=== PATIENT | female | born 1975 | race Caucasian/White ===

== ENCOUNTER 2018-04-17 08:13 | Day surgery (SDC) | payer BC, SELFPAY ==
[2018-03-26 16:51] VITALS: BMI 32.1
[2018-04-17] VITALS (10 sets, daily range): BP systolic 106–123; BP diastolic 59–76; PULSE 66–88; RESP 12–20; TEMP 36.1–37.2; O2SAT 95–100; BMI 35.5
--- NOTE | 2018-04-17 08:48 | SUR.OPER ---
Supine on padded OR bed, head on pillow, safety belt at thigh, left arm padded and tucked at side. Right arm secured on padded arm oard <90 degrees abduction. Legs uncrossed. Padded footboard in place. Tape over blanket to secure lower legs.
[2018-04-17] MEDS: LACTATED RINGERS 1,000 ML 42 ML IV (08:56)
--- NOTE | 2018-04-17 09:21 | PM.HP.1 ---
History of Present Illness Date Patient Seen: 04/17/18 Time Patient Seen: 09:21 Chief complaint: [id number] REPAIR HERNIA POSSIBLE USE OF MESH Narrative: The patient is woman brought in for repair of a hernia that is above her umbilicus and slightly to the left. It is symptomatic and causes bloating localize pain. At 1 point had gotten quite large and hard but that has gone away. Patient History Medical History Ventral hernia (Acute) Bipolar disorder (Chronic) History of alcohol abuse (Chronic) OCD (obsessive compulsive disorder) (Chronic) Obesity (Chronic) Surgical History Status post knee surgery Family & Social History Family History: Reviewed 04/17/18 by Mian Jo MD Social History: household members significant other Tobacco & Substance use: Smoking Status Never smoker alcohol intake current Substance Use Type does not use Meds Home Medications Medication Instructions Recorded Confirmed Type hydrocodone-acetaminophen 0 PO SEE INSTRUCTIONS PRN #35 tab 05/23/16 Rx bupropion HCl [Wellbutrin SR] 150 mg PO BID 04/17/18 04/17/18 History topiramate [Topamax] 50 mg PO DAILY 04/17/18 04/17/18 History Allergies Allergy/AdvReac Type Severity Reaction Status Date / Time No Known Drug Allergies Allergy Verified 04/17/18 08:38 Review of Systems Review of Systems All systems reviewed & are unremarkable except as noted in HPI and below Exam Vital Signs (past 8 hours): Vital Signs - 8 hr 04/17/18 08:41 Temperature 99.0 F Pulse Rate 81 Respiratory Rate 15 Blood Pressure 123/75 H Pulse Oximetry 95 Pulse Oximetry 95 Oxygen Delivery Method Room Air Narrative Exam Narrative: Out rales rhonchi. Heart regular rate rhythm without murmur gallop. Abdomen is mildly protuberant soft nontender. Difficult to appreciate this small fascial defect above and to the left of the umbilicus. It is been marked. Assessment & Plan (1) Ventral hernia without obstruction or gangrene: Problem details: Plan repair. I have discussed the use of mesh which I probably will not use in this case. Risks of bleeding infection recurrence discussed. She appears to understand and wishes to proceed. Appreciates restrictions postop. Current visit: Yes Status: Acute
--- NOTE | 2018-04-17 09:25 | P.HP_ITS ---
History of Present Illness Date Patient Seen: 04/17/18 Time Patient Seen: 09:21 Chief complaint: [id number] REPAIR HERNIA POSSIBLE USE OF MESH Narrative: The patient is woman brought in for repair of a hernia that is above her umbilicus and slightly to the left. It is symptomatic and causes bloating localize pain. At 1 point had gotten quite large and hard but that has gone away. Patient History Medical History Ventral hernia (Acute) Bipolar disorder (Chronic) History of alcohol abuse (Chronic) OCD (obsessive compulsive disorder) (Chronic) Obesity (Chronic) Surgical History Status post knee surgery Family & Social History Family History: Reviewed 04/17/18 by Mian Jo MD Social History: household members significant other Tobacco & Substance use: Smoking Status Never smoker alcohol intake current Substance Use Type does not use Meds Home Medications Medication Instructions Recorded Confirmed Type hydrocodone-acetaminophen 0 PO SEE INSTRUCTIONS PRN #35 tab 05/23/16 Rx bupropion HCl [Wellbutrin SR] 150 mg PO BID 04/17/18 04/17/18 History topiramate [Topamax] 50 mg PO DAILY 04/17/18 04/17/18 History Allergies Allergy/AdvReac Type Severity Reaction Status Date / Time No Known Drug Allergies Allergy Verified 04/17/18 08:38 Review of Systems Review of Systems All systems reviewed & are unremarkable except as noted in HPI and below Exam Vital Signs (past 8 hours): Vital Signs - 8 hr 3 04/17/18 08:41 Temperature 99.0 F Pulse Rate 81 Respiratory Rate 15 Blood Pressure 123/75 H Pulse Oximetry 95 Pulse Oximetry 95 Oxygen Delivery Method Room Air Narrative Exam Narrative: Out rales rhonchi. Heart regular rate rhythm without murmur gallop. Abdomen is mildly protuberant soft nontender. Difficult to appreciate this small fascial defect above and to the left of the umbilicus. It is been marked. Assessment & Plan (1) Ventral hernia without obstruction or gangrene: Problem details: Plan repair. I have discussed the use of mesh which I probably will not use in this case. Risks of bleeding infection recurrence discussed. She appears to understand and wishes to proceed. Appreciates restrictions postop. Current visit: Yes Status: Acute
--- NOTE | 2018-04-17 09:25 | PM.PREOP ---
Pre-operative Note Interval Note Pre-op Check: History & Physical exam performed today H&P completed within 30 days and has changed as indicated here:: No change
[2018-04-17] MEDS: CEFAZOLIN 2 GM/100 ML FROZ.PIGGY IV (09:45)
[2018-04-17] MEDS: BUPIVACAINE 0.5% (PF) 30 ML VIAL INJ (10:44)
[2018-04-17] MEDS: LORazepam 2 MG/ML SYRINGE 0.5 MG IV ×2 (10:55→11:07)
[2018-04-17] MEDS: fentaNYL 100 MCG/2 ML INJ 50 MCG IV ×2 (10:56→11:02)
--- NOTE | 2018-04-17 11:08 | P.OP_ITS ---
Operative Date/Time/Diagnoses - Date of procedure: 04/17/18 Time of procedure: 11:00 Pre-op diagnosis: Reducible ventral hernia Post-op diagnosis: other (Incarcerated ventral hernia and a small umbilical hernia reducible without obstruction or gangrene) Procedure & Clinicians Procedure: Repair of 2-3 defects 1 at the umbilicus in one view at above the above umbilicus(ventral) with underlay of mesh. Same procedure as scheduled: No Indications: Patient was found to have an additional hernia adjacent to the 1st which was repaired Click Yes if Unassisted: Yes Anesthesia Type: General Operative Notes Findings: Two small defects 1 at the umbilicus and which was reducible and 1 with incarcerated fat above and to the left. Closure Type: primary Specimen(s): none sent Implants & Drains: Mesh circular 1.7 in Estimated Blood Loss (mL): 5 Blood products transfused: none Procedure in detail: The patient was placed supine on the operating room table and underwent general LMA anesthesia. She was prepped and draped in the usual fashion. Local anesthetic was infiltrated. The hernia was located above and to the left of the umbilicus. She was also noted once asleep to have this hernia incarcerated. She also had a small reducible umbilical hernia. Curvilinear incision was made in the supraumbilical fold. It was carried down to the fascial level. The patient had incarcerated fat and a very small defect superior and just to the left of midline. Above the umbilical area. I decided to excise this fat because it would be very difficult to reduce it due to the tiny defect in the fascia. Using cautery it was removed. I dissected down toward the umbilicus and identified the small hernia at the umbilicus as well. I cleared the fascia around both of these hernias. There was a bridge of fascia between them which I left intact. I dissected the preperitoneal fat off the overlying abdominal wall and placed a circular piece of mesh that was 1.7 in diameter which would go under both of these defects. The defects were then closed with figure of 8 0 Tycron incorporating the tails of the mesh it to the fascial closure.. the defect appeared to be adequately closed. The umbilicus was tacked down to the fascia. The subcu was closed with interrupted 3 0 Polysorb. The skin was closed running 4 0 Polysorb subcuticular stitch and Steri -Strips. Dressing was applied the patient was taken recovery room extubated in good condition. Complications: none Condition: stable Disposition: PACU
[2018-04-17] MEDS: OXYCODONE IR 5 MG TABLET PO (11:16)
== END 2018-04-17 12:40 | disposition home or self-care (01) ==
PROVIDERS: PCP Nurse Practitioner Family; Visit Provider Specialist
PROC: (CPT 49560; principal; 2018-04-17 09:15)
DX: K43.9 Ventral hernia without obstruction or gangrene (principal); K42.9 Umbilical hernia without obstruction or gangrene; E66.9 Obesity, unspecified
CPT/HCPCS: 49560; 49585; 49568; C1781; J0690; J1100; J2060; J2250; J2405; J2704; J3010

== ENCOUNTER → 2018-08-15 15:21 | Outpatient (CLI) | payer BC, SELFPAY ==
--- NOTE | 2018-08-15 | DI.MG.S_ITS ---
BILATERAL DIGITAL SCREENING MAMMOGRAM 3D/2D WITH CAD: 08/15/2018 CLINICAL: Routine screening. Baseline exam. Family history of breast cancer. No prior exams were available for comparison. The tissue of both breasts is extremely dense, which lowers the sensitivity of mammography. Current study was also evaluated with a Computer Aided Detection (CAD) system. There is architectural distortion in the right breast at 12 o'clock middle depth. No other significant masses, calcifications, or other findings are seen in either breast. IMPRESSION: INCOMPLETE: NEEDS ADDITIONAL IMAGING EVALUATION The architectural distortion in the right breast is indeterminate. Additional views with possible ultrasound are recommended. This exam was interpreted at Station ID: [id number]. NOTE: For mammograms, a report in lay terms will be sent to the patient. Approximately 15% of breast malignancies will not be visualized mammographically. In the management of a palpable breast mass, a negative mammogram must not discourage biopsy of a clinically suspicious lesion. Electronically Signed By: Desire humphreys/spring:08/15/2018 16:25:27 letter sent: Additional Imaging Needed ACR BI-RADS Category 0: Incomplete 3340F
== END ==
PROVIDERS: PCP Nurse Practitioner Family; Visit Provider Nurse Practitioner Family
DX: Z12.31 Encounter for screening mammogram for malignant neoplasm of breast (principal); Z80.3 Family history of malignant neoplasm of breast
CPT/HCPCS: 77063; 77067

== ENCOUNTER → 2018-09-10 13:15 | Outpatient (CLI) | payer BC, SELFPAY ==
--- NOTE | 2018-09-10 | DI.US.S_ITS ---
LIMITED ULTRASOUND OF RIGHT BREAST: 09/10/2018 CLINICAL: Patient returns today to evaluate possible architectural distortion in the right breast, which resolved with additional diagnostic views. Comparison is made to exams dated: 09/10/2018 mammogram and 08/15/2018 mammogram - [facility]. Real-time and Doppler ultrasound of the right breast 12 o'clock region were performed. Razo scale images of the real-time examination were reviewed. There is a 1.4 x 0.6 x 1.1 cm oval circumscribed anechoic cyst with increased through transmission and no vascularity on Doppler ultrasound located in the right breast at 11:30 position 4 cm from the nipple. No other masses or abnormalities are found on targeted ultrasound of the right breast. IMPRESSION: BENIGN 1) 1.4 cm benign simple cyst in the right breast. No other masses or abnormalities are found on targeted ultrasound of the right breast. 2) There is no sonographic evidence of malignancy in the imaged right breast. Return to annual mammogram screening schedule is recommended. This exam was interpreted at Station ID: [id number]. Electronically Signed By: King Felipe M.D. ecl/:09/11/2018 09:17:45 letter sent: Normal Exam Ultrasound BI-RADS: 2 Benign
--- NOTE | 2018-09-10 | DI.MG.S_ITS ---
UNILATERAL RIGHT DIGITAL DIAGNOSTIC MAMMOGRAM 3D/2D WITH ADDITIONAL VIEWS: 09/10/2018 CLINICAL: Additional evaluation requested from prior study. Comparison is made to exam dated: 08/15/2018 [facility]. The tissue of right breast is extremely dense, which lowers the sensitivity of mammography. Previously noted architectural distortion in the right breast at 12 o'clock middle depth on comparison screening mammogram resolves with additional views and likely represented superimposition of benign anatomic tissues. No significant masses, calcifications, or other findings are seen in the breast. IMPRESSION: INCOMPLETE: NEEDS ADDITIONAL IMAGING EVALUATION Previously noted architectural distortion in the right breast at 12 o'clock middle depth on comparison screening mammogram resolves with additional views and likely represented superimposition of benign anatomic tissues. A targeted ultrasound is recommended and will be performed immediately following this exam. This exam was interpreted at Station ID: [id number]. NOTE: For mammograms, a report in lay terms will be sent to the patient. Approximately 15% of breast malignancies will not be visualized mammographically. In the management of a palpable breast mass, a negative mammogram must not discourage biopsy of a clinically suspicious lesion. Electronically Signed By: King Felipe M.D. ecl/:09/11/2018 09:14:22 letter sent: Additional Imaging Needed ACR BI-RADS Category 0: Incomplete 3340F
== END ==
PROVIDERS: PCP Nurse Practitioner Family; Visit Provider Internal Medicine
DX: R92.8 Other abnormal and inconclusive findings on diagnostic imaging of breast (principal); N60.01 Solitary cyst of right breast
CPT/HCPCS: 76642; 77065; G0279

== ENCOUNTER → 2019-09-02 16:28 | Outpatient (CLI) | payer BC, SELFPAY ==
--- NOTE | 2019-09-02 | DI.MG.S_ITS ---
BILATERAL DIGITAL SCREENING MAMMOGRAM 3D/2D WITH CAD: 09/02/2019 CLINICAL: Routine screening. Family history of breast cancer. Comparison is made to exams dated: 09/10/2018 mammogram and 08/15/2018 mammogram - . The tissue of both breasts is extremely dense, which lowers the sensitivity of mammography. Current study was also evaluated with a Computer Aided Detection (CAD) system. No significant masses, calcifications, or other findings are seen in either breast. There has been no significant interval change. IMPRESSION: NEGATIVE There is no mammographic evidence of malignancy. A 1 year screening mammogram is recommended. This exam was interpreted at Station ID: [id number]. NOTE: For mammograms, a report in lay terms will be sent to the patient. Approximately 15% of breast malignancies will not be visualized mammographically. In the management of a palpable breast mass, a negative mammogram must not discourage biopsy of a clinically suspicious lesion. Electronically Signed By: Asif sun/spring:09/02/2019 17:12:31 letter sent: Normal Exam ACR BI-RADS Category 1: Negative [id number]
== END ==
PROVIDERS: PCP Nurse Practitioner Family; Visit Provider Nurse Practitioner Family
DX: Z12.31 Encounter for screening mammogram for malignant neoplasm of breast (principal); Z80.3 Family history of malignant neoplasm of breast
CPT/HCPCS: 77063; 77067

== ENCOUNTER → 2020-07-14 12:13 | Outpatient (CLI) | payer BC, SELFPAY ==
[2020-07-14 12:54] LABS: Hemoglobin A1C% w Est Avg Glu 5.2 % (4.0-6.0)
[2020-07-14 13:09] LABS: Alanine Aminotransferase 13 IU/L (<35); Albumin 4.6 g/dL (3.5-5.0); Albumin Globulin Ratio 1.5 (1.0-2.8); Alkaline Phosphatase 84 U/L (38-126); Aspartate Aminotransferase 19 IU/L (14-36); BUN Creatinine Ratio 16.7 (6-22); Bilirubin Total 0.4 mg/dL (0.2-1.3); Blood Urea Nitrogen 14 mg/dL (7-17); Calcium 9.4 mg/dL (8.4-10.2); Carbon Dioxide 27 mmol/L (22-32); Chloride 103 mmol/L (98-107); Cholesterol 197 mg/dL (140-199); Estimated Glomerular Filt Rate > 60.0 mL/min (>60); Glucose 102 mg/dL (70-100); HDL Cholesterol 56 mg/dL (40-60); HEMOLYSIS < 15 (0-50); LDL Cholesterol Calculated 118 mg/dL (<100); Potassium 4.5 mmol/L (3.4-5.1); Sodium 140 mmol/L (137-145); Total Protein 7.6 g/dL (6.3-8.2); Triglycerides 114 mg/dL (35-150)
== END ==
PROVIDERS: PCP Family Medicine; Referring Provider Family Medicine; Visit Provider Family Medicine
DX: Z00.01 Encounter for general adult medical examination with abnormal findings (principal); Z13.1 Encounter for screening for diabetes mellitus; E78.5 Hyperlipidemia, unspecified; F41.9 Anxiety disorder, unspecified
CPT/HCPCS: 36415; 80053; 80061; 83036

== ENCOUNTER → 2020-11-04 16:50 | Outpatient (CLI) | payer BC, SELFPAY ==
--- NOTE | 2020-11-04 16:52 | DI.MG.S_ITS ---
BILATERAL DIGITAL SCREENING MAMMOGRAM 3D/2D WITH CAD: 11/04/2020 CLINICAL: Routine screening. Family history of breast cancer. Comparison is made to exams dated: 09/02/2019 mammogram and 08/15/2018 mammogram - [facility]. The tissue of both breasts is extremely dense, which lowers the sensitivity of mammography. Current study was also evaluated with a Computer Aided Detection (CAD) system. There is a possible developing irregular equal density asymmetry in the right breast posterior depth lateral region seen on the craniocaudal view only. This is more prominent. No other significant masses, calcifications, or other findings are seen in either breast. IMPRESSION: INCOMPLETE: NEEDS ADDITIONAL IMAGING EVALUATION The possible developing irregular equal density asymmetry in the right breast is indeterminate. Additional views with possible ultrasound are recommended. This exam was interpreted at Station ID: [id number]. NOTE: For mammograms, a report in lay terms will be sent to the patient. Approximately 15% of breast malignancies will not be visualized mammographically. In the management of a palpable breast mass, a negative mammogram must not discourage biopsy of a clinically suspicious lesion. Electronically Signed By: Kacey jamil/spring:11/04/2020 17:33:00 letter sent: Additional Imaging Needed ACR BI-RADS Category 0: Incomplete 3340F
== END ==
PROVIDERS: PCP Family Medicine; Referring Provider Family Medicine; Visit Provider Family Medicine
DX: Z12.31 Encounter for screening mammogram for malignant neoplasm of breast (principal); Z80.3 Family history of malignant neoplasm of breast
CPT/HCPCS: 77063; 77067

== ENCOUNTER → 2021-01-25 11:19 | Outpatient (CLI) | payer BC, SELFPAY ==
[2021-01-25] MEDS: COVID-19 VACC #1, MRNA(MOD) 100 MCG/0.5 ML VIAL IM (11:30)
== END ==
PROVIDERS: PCP Family Medicine; Visit Provider Internal Medicine
DX: Z23 Encounter for immunization (principal)
CPT/HCPCS: 0011A; 91301

== ENCOUNTER → 2021-02-22 10:59 | Outpatient (CLI) | payer BC, SELFPAY ==
[2021-02-22] MEDS: COVID-19 VACC #2, MRNA(MOD) 100 MCG/0.5 ML VIAL IM (11:04)
== END ==
PROVIDERS: PCP Family Medicine; Visit Provider Internal Medicine
DX: Z23 Encounter for immunization (principal)
CPT/HCPCS: 0012A; 91301

== ENCOUNTER → 2021-11-06 08:48 | Outpatient (CLI) | payer BC, SELFPAY ==
--- NOTE | 2021-11-06 08:51 | DI.US.S_ITS ---
LIMITED ULTRASOUND OF RIGHT BREAST: 11/06/2021 CLINICAL: Patient returns today to evaluate a focal asymmetry in the right breast. Comparison is made to exams dated: 11/06/2021 mammogram, 11/04/2020 mammogram, 09/02/2019 mammogram, and 09/10/2018 [facility]. Color flow and real-time ultrasound of the right breast 9-10 o'clock and 12 o'clock regions were performed. Razo scale images of the real-time examination were reviewed. There is a 0.6 cm x 0.4 cm x 0.4 cm oval cyst with a septated internal wall in the right breast at 9:30 o'clock posterior depth 7 cm from the nipple. This oval cyst is anechoic. This correlates with mammography findings. Color flow imaging demonstrates that there is no vascularity present. There also is a 1 cm x 0.8 cm x 0.4 cm oval cyst with a septated internal wall in the right breast at 12 o'clock middle depth 4 cm from the nipple. This correlates with mammography findings. Color flow imaging demonstrates that there is no vascularity present. Additionally, there is a benign 0.8 cm x 0.8 cm x 0.6 cm simple cyst in the right breast at 12 o'clock posterior depth 2 cm from the nipple. Color flow imaging demonstrates that there is no vascularity present. IMPRESSION: PROBABLY BENIGN The 0.6 cm oval cyst in the right breast at 9:30 o'clock posterior depth is consistent with a complicated cyst and is probably benign. -Follow-up mammogram and ultrasound in 6 months is recommended. The 1 cm oval cyst in the right breast at 12 o'clock middle depth is consistent with a complicated cyst and is probably benign. -Follow-up mammogram and ultrasound in 6 months is recommended. The 0.8 cm simple cyst in the right breast at 12 o'clock posterior depth is benign. This exam was interpreted at Station ID: [id number]. Electronically Signed By: Jese Hairston M.D. [facility]/:11/06/2021 11:53:50 letter sent: Followup Recommended Ultrasound BI-RADS: 3 Probably benign
== END ==
PROVIDERS: PCP Family Medicine; Referring Provider Family Medicine; Visit Provider Family Medicine
DX: R92.8 Other abnormal and inconclusive findings on diagnostic imaging of breast (principal); N60.01 Solitary cyst of right breast
CPT/HCPCS: 76642

== ENCOUNTER → 2021-11-06 08:51 | Outpatient (CLI) | payer BC, SELFPAY ==
--- NOTE | 2021-11-06 | DI.MG.S_ITS ---
BILATERAL DIGITAL DIAGNOSTIC MAMMOGRAM 3D/2D: 11/06/2021 CLINICAL: Late folow up, due bilateral. Comparison is made to exams dated: 11/04/2020 mammogram, 09/02/2019 mammogram, 09/10/2018 mammogram, and 08/15/2018 mammogram - [facility]. The tissue of both breasts is extremely dense, which lowers the sensitivity of mammography. There is a 0.5 cm round focal asymmetry with a circumscribed margin in the right breast at 9 o'clock posterior depth. This is not significantly changed. There also is a possible focal asymmetry in the right breast at 12 o'clock anterior depth. No other significant masses, calcifications, or other findings are seen in either breast. IMPRESSION: INCOMPLETE: NEEDS ADDITIONAL IMAGING EVALUATION The 0.5 cm round focal asymmetry in the right breast at 9 o'clock posterior depth resembles a cyst and is indeterminate. The possible focal asymmetry in the right breast at 12 o'clock anterior depth is indeterminate. A targeted ultrasound is recommended and will immediately follow. This exam was interpreted at Station ID: [id number]. NOTE: For mammograms, a report in lay terms will be sent to the patient. Approximately 15% of breast malignancies will not be visualized mammographically. In the management of a palpable breast mass, a negative mammogram must not discourage biopsy of a clinically suspicious lesion. Electronically Signed By: Jese Hairston M.D. slc/:11/06/2021 09:56:40 ACR BI-RADS Category 0: Incomplete [id number]
== END ==
PROVIDERS: PCP Family Medicine; Referring Provider Family Medicine; Visit Provider Family Medicine
DX: R92.8 Other abnormal and inconclusive findings on diagnostic imaging of breast (principal); N64.89 Other specified disorders of breast
CPT/HCPCS: 77066; G0279

== ENCOUNTER → 2021-12-06 08:46 | Outpatient (CLI) | payer BC, SELFPAY ==
[2021-12-06 10:57] LABS: Add Manual Diff / Slide Review NO; Basophils Absolute Auto 0 /uL (0-100); Basophils Percent Auto 0.6 % (0-2); Eosinophils Absolute Auto 100 /uL (0-450); Eosinophils Percent Auto 1.5 % (2-4); Hematocrit 35.7 % (36-46); Hemoglobin 11.9 g/dL (12.0-16.0); Lymphocytes Absolute Auto 1900 /uL (1100-4500); Lymphocytes Percent Auto 35.1 % (25-40); Mean Corpuscular HGB Conc 33.3 % (30-36); Mean Corpuscular Hemoglobin 28.1 PG (26-34); Mean Corpuscular Volume 84.5 fL (80-100); Monocytes Absolute Auto 400 /uL (0-900); Monocytes Percent Auto 6.8 % (3-14); Neutrophils Absolute Auto 3100 /uL (1500-7000); Platelet Count 273 X10^3/uL (150-400); Red Blood Cell Count 4.22 X10^6/uL (4.0-5.2); Red Cell Distribution Width 13.4 % (11.6-14.8); White Blood Cell Count 5.5 X10^3/uL (4.5-11.0)
[2021-12-06 11:06] LABS: Alanine Aminotransferase 10 IU/L (<35); Albumin 4.6 g/dL (3.5-5.0); Albumin Globulin Ratio 1.5 (1.0-2.8); Alkaline Phosphatase 61 U/L (38-126); Aspartate Aminotransferase 18 IU/L (14-36); BUN Creatinine Ratio 17.9 (6-22); Bilirubin Total 0.4 mg/dL (0.2-1.3); Blood Urea Nitrogen 17 mg/dL (7-17); Calcium 9.4 mg/dL (8.4-10.2); Carbon Dioxide 26 mmol/L (22-32); Chloride 106 mmol/L (98-107); Cholesterol 225 mg/dL (140-199); Estimated Glomerular Filt Rate > 60.0 mL/min (>60); Glucose 91 mg/dL (70-100); HDL Cholesterol 59 mg/dL (40-60); HEMOLYSIS < 15 (0-50); Hemoglobin A1C% w Est Avg Glu 5.1 % (4.0-6.0); LDL Cholesterol Calculated 145 mg/dL (<100); Potassium 3.9 mmol/L (3.4-5.1); Sodium 139 mmol/L (137-145); Total Protein 7.6 g/dL (6.3-8.2); Triglycerides 105 mg/dL (35-150)
[2021-12-06 11:30] LABS: Vitamin D 25 Hydroxy (D3) 39.9 ng/mL (30.0-100.0)
[2021-12-06 11:32] LABS: TSH w/ Reflex to FT4 2.99 uIU/mL (0.47-4.68)
== END ==
PROVIDERS: PCP Family Medicine; Referring Provider Family Medicine; Visit Provider Family Medicine
DX: Z00.01 Encounter for general adult medical examination with abnormal findings (principal); F41.9 Anxiety disorder, unspecified; R42 Dizziness and giddiness; R53.83 Other fatigue; Z78.9 Other specified health status
CPT/HCPCS: 36415; 80053; 80061; 82306; 83036; 83735; 84443; 85025

== ENCOUNTER 2022-07-03 02:55 | Emergency (ER) | payer BC, SELFPAY ==
[2022-07-03 03:17] VITALS: BP 145/72; PULSE 90; RESP 18; TEMP 36.9; O2SAT 97; BMI 30.4
[2022-07-03 03:23] LABS: Color Urine UA Orange
[2022-07-03 03:24] LABS: Appearance Urine UA Slightly Cloudy
[2022-07-03 03:26] LABS: Bacteria Urine Moderate (10-30); Culture Indicated Urine Specimen Cultured; RBC Urine 5-10/HPF (0-5/HPF); Squamous Epithelial Cell Urine 1-5 /HPF (0-5/HPF); WBC Urine 30-100/HPF (0-5/HPF)
--- NOTE | 2022-07-03 03:46 | ED.GENADULT ---
HPI - General Adult General Chief complaint: Urogenital-Female Stated complaint: uti Time Seen by Provider: 07/03/22 03:09 Source: patient Mode of arrival: Ambulatory History of Present Illness HPI narrative: 46-year-old woman with no significant medical history presents with increasing urinary frequency, dysuria and low pubic tenderness. Symptoms have been ongoing for the last 24 hours and increasing. She would be an taking azo, increasing fluids including cranberry juice which seem to work for the 1st 12 hours or so. She woke this evening with worsening urinary urgency and frequency. She states that she has not had fevers, vomiting, abdominal pain aside from the mild suprapubic tenderness. No flank pain no vaginal discharge no concerns for sexually transmitted infection. Related Data Previous Rx's Medication Instructions Recorded lorazepam 0.5 mg tablet (Ativan) 0.25 mg PO BEDTIME PRN anxiety #12 06/09/21 tabs bupropion HCl 300 mg 24 hr tablet, See Rx Instructions .Route 11/28/21 extended release .COMPLEX #90 tabs nirmatrelvir 300 mg (150 mg See Rx Instructions PO PER PKG DIR 03/12/22 x2)-ritonavir 100 mg tablet,dose #6 tabs pack(EUA) (Paxlovid) methocarbamol 500 mg tablet 500 mg PO TID #12 tabs 05/29/22 sulfamethoxazole 800 1 tab PO BID #10 tabs 07/03/22 mg-trimethoprim 160 mg tablet (Bactrim DS) Allergies Allergy/AdvReac Type Severity Reaction Status Date / Time No Known Drug Allergies Allergy Verified 07/14/20 11:11 Review of Systems Review of Systems Narrative: Remainder of complete review of systems is otherwise unremarkable except for that included in the HPI. Patient History Medical History Depression History of alcohol abuse Hyperlipidemia Obesity OCD (obsessive compulsive disorder) Ventral hernia Surgical History Status post knee surgery Status post left knee surgery Social History marital status: household members: significant other and children caregiver/support person: Yes housing: house pets and animals: No education level: high school occupational status: employed other: walks. 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 Read and listens to podcasts. seatbelt use: always working smoke detector in home: Yes fire extinguisher in home: No carbon monox detector in home: Yes firearms in home: No Smoking Status: Never smoker alcohol intake: former (No alcohol for 2 years) substance use type: does not use during the past year weight has: decreased > 10 lbs (intentionally) well-balanced diet: daily or most days daily servings fruits/ve or more times/day caffeine: Yes eating out: 1-3 times/week Type(s) of exercise: walking and advised to exercise at least 150 min/week (moderate intensity aerobic) duration: 60-90 minutes/day Smoking Status: Never smoker alcohol intake frequency: 0-2 drinks per day Substance Use Type: does not use Exam Initial Vital Signs Initial Vital Signs: Vital Signs Temperature 98.5 F 07/03/22 03:17 Pulse Rate 90 07/03/22 03:17 Respiratory Rate 18 07/03/22 03:17 Blood Pressure 145/72 H 07/03/22 03:17 Pulse Oximetry 97 07/03/22 03:17 Oxygen Delivery Method 07/03/22 03:17 General: Healthy appearing, in no acute distress. Able to give a complete and coherent history. Well-nourished well-developed HEENT: Moist mucous membranes, normal sclera with reactive pupils, Respiratory: Lungs are clear to auscultation, no wheezing no rales no rhonchi. Full and symmetrical air movement Cardiac: Regular rate and rhythm no murmurs no bruits Abdomen: Soft, mild suprapubic tenderness only, good bowel tones, no flank pain Skin: Warm and dry, no rashes Neurologic: Grossly neurologically intact with no obvious asymmetries or abnormalities Extremities: No trauma, well perfused Psych: Cooperative, appropriate insight and affect Course Orders Ordered: ED Orders 07/03/22 03:10 Urinalysis and Microscopic Stat Urine Culture Stat Vital Signs Vital signs: Vital Signs - 8 hr 07/03/22 03:17 Temperature 98.5 F Pulse Rate 90 Respiratory Rate 18 Blood Pressure 145/72 H Pulse Oximetry 97 Oxygen Delivery Method Room Air Medical Decision Making Lab Data Labs: Lab Results 07/03/22 Range/Units 03:10 Urine Color [place] Urine Appearance Slightly cloudy Urine pH TNP Ur Specific [place] TNP Urine Protein TNP Urine Glucose (UA) TNP Urine Ketones TNP Urine Occult Blood TNP Urine Nitrate TNP Urine Bilirubin TNP Urine Urobilinogen TNP Ur Leukocyte Esterase TNP Urine RBC 5-10/hpf H (0-5/HPF) Urine WBC 30-100/hpf H (0-5/HPF) Ur Squamous Epith Cells 1-5 /hpf (0-5/HPF) Urine Bacteria Moderate (10-30) H (None) Ur Culture Indicated? Specimen cultured MDM Narrative Medical decision making narrative: 46-year-old woman with 24 hours of urinary tract infection symptoms. Urine is consistent. She is treated with Septra for 5 days. Will follow up with cultures if any changes are required. There is no evidence of kidney stone, intra-abdominal infection, sepsis, vaginal infection/PID. Questions are answered she is safe for home discharge Discharge Plan Departure Patient Disposition: Home Clinical Impression: Urinary tract infection Qualifiers: Urinary tract infection type: acute cystitis Hematuria presence: with hematuria Qualified Code(s): N30.01 - Acute cystitis with hematuria Instructions: DI for Urinary Tract Infection (UTI) Activity Restrictions/Additional Instructions: Thank you for coming in today Your symptoms, exam and the urinalysis done today are all very consistent with developing a simple bladder infection. I have given you the 1st dose of Septra and will give you 5 additional days to complete. The prescription was electronically transmitted to [facility]. Using 400 mg of ibuprofen (2 [id number] pills) and 1 Tylenol every 6 hours can be very helpful in controlling pain. You can also continue with the [id number]-[id number] azo if you find that helpful If you find that you are getting worse or develop any new symptoms, please feel free to return to the emergency department for further evaluation. Prescriptions: New sulfamethoxazole-trimethoprim [Bactrim DS] 800-160 mg tablet 1 tab PO BID Qty: 10 0RF No Action lorazepam [Ativan] 0.5 mg tablet 0.25 mg PO BEDTIME PRN (Reason: anxiety) Qty: 12 0RF Rx Instructions: Take 1/2-1 tabs Paxlovid (EUA) 150 mg x 2- 100 mg tablet See Rx Instructions PO PER PKG DIR Qty: 6 0RF Rx Instructions: PO PER PKG DIR methocarbamol 500 mg tablet 500 mg PO TID Qty: 12 0RF bupropion HCl 300 mg tablet extended release 24 hr See Rx Instructions .ROUTE .COMPLEX Qty: 90 3RF Dose Instruction: take 1 tablet by mouth every morning Rx Instructions: take 1 tablet by mouth every morning Referrals: Filipe Candelaria MD [Primary Care Provider] -
[2022-07-03] MEDS: ACETAMINOPHEN 325 MG TABLET PO (04:34)
[2022-07-03] MEDS: IBUPROFEN 400 MG TABLET PO (04:35)
[2022-07-03] MEDS: TRIMETH/SULFA 160/800 (DS) TABLET 1 TAB PO (04:35)
== END 2022-07-03 04:38 | disposition home or self-care (01) ==
PROVIDERS: Emergency Provider Emergency Medicine; PCP Family Medicine
DX: N30.01 Acute cystitis with hematuria (principal)
CPT/HCPCS: 81001; 87077; 87086; 87186; 99283

== ENCOUNTER → 2022-07-06 11:28 | Outpatient (CLI) | payer BC, SELFPAY ==
--- NOTE | 2022-07-06 11:30 | DI.RAD.S_ITS ---
PROCEDURE: XR KNEE RT 3V INDICATIONS: bilateral knee and back pain TECHNIQUE: 3 views of the knee were acquired. COMPARISON: [facility], CR, XR KNEE 1 OR 2 VIEWS RIGHT, 10/15/2017, 14:37. FINDINGS: Bones: Accounting for differences in patient positioning and technique, stable appearance of right unicompartmental arthroplasty involving the medial femorotibial compartment. No hardware complication identified. Stable postsurgical changes of prior anterior cruciate ligament reconstruction. Moderate degenerative changes of the right knee. No acute fracture seen. Soft tissues: Moderate-sized joint effusion. No suspicious soft tissue calcifications. IMPRESSION: Status post medial femorotibial unicompartmental arthroplasty. Status post prior anterior cruciate ligament reconstruction. Moderate tricompartmental osteoarthrosis. Moderate-sized joint effusion. Dictated by: Asif Ramos M.D. on 07/06/2022 at 13:28 Approved by: Asif Ramos M.D. on 07/06/2022 at 13:32
--- NOTE | 2022-07-06 11:30 | DI.RAD.S_ITS ---
PROCEDURE: XR KNEE LT 3V INDICATIONS: bilateral knee and back pain TECHNIQUE: 3 views of the knee were acquired. COMPARISON: [facility], CR, XR KNEE 1 OR 2VW LT, 06/10/2017, 11:07. FINDINGS: Bones: Accounting for differences in patient positioning and technique, stable postsurgical changes of prior medial femorotibial unicompartmental arthroplasty without evidence for hardware loosening or failure. No acute fracture seen. Moderate degenerative changes of the left knee. Soft tissues: No substantial joint effusion. No suspicious soft tissue calcifications. IMPRESSION: Left knee without acute fracture or dislocation. Stable postsurgical changes of prior medial femorotibial unicompartmental arthroplasty. Moderate degenerative changes of the left knee. Dictated by: Asif Ramos M.D. on 07/06/2022 at 13:32 Approved by: Asif Ramos M.D. on 07/06/2022 at 13:34
--- NOTE | 2022-07-06 11:30 | DI.RAD.S_ITS ---
PROCEDURE: XR LUMBAR SPINE 2-3V INDICATIONS: bilateral knee and back pain TECHNIQUE: 3 views of the lumbar spine were acquired. COMPARISON: None. FINDINGS: Bones: 5 [id number] vertebrae are present. There is mild levoscoliosis of thoracolumbar spine centered at L1 level and compensatory mild dextroscoliosis of lumbar spine centered at L3 level.. Degenerative disc disease throughout lumbar spine is seen more prominent at L1-2 level. No vertebral body compression fractures. No suspicious bony lesions. Soft tissues: Overlying bowel gas pattern is normal. No suspicious soft tissue calcifications. Intrauterine device is seen. IMPRESSION: Mild scoliosis as above. No acute compression fracture or significant spondylolisthesis. Degenerative disc disease throughout lumbar spine. Dictated by: Otcavio Kraft M.D. on 07/06/2022 at 12:17 Approved by: Octavio Kraft M.D. on 07/06/2022 at 12:18
== END ==
PROVIDERS: PCP Family Medicine; Referring Provider Family Medicine; Visit Provider Family Medicine
DX: M99.9 Biomechanical lesion, unspecified (principal); Z98.890 Other specified postprocedural states; M17.11 Unilateral primary osteoarthritis, right knee; M25.562 Pain in left knee; M25.561 Pain in right knee; M54.9 Dorsalgia, unspecified; M25.461 Effusion, right knee
CPT/HCPCS: 72100; 73562

== ENCOUNTER → 2022-12-21 09:50 | Outpatient (CLI) | payer BC, SELFPAY ==
[2022-12-21 11:09] LABS: Appearance Urine UA CLEAR; Color Urine UA ORANGE
[2022-12-21 11:16] LABS: Amorphous Sediment Urine 2+; Bacteria Urine None Seen; RBC Urine None Seen (0-5/HPF); Squamous Epithelial Cell Urine 0-1 /HPF (0-5/HPF); WBC Urine None Seen (0-5/HPF)
[2022-12-21 11:17] LABS: Culture Indicated Urine Cult Not Indicated; Mucus Urine 1+ (Negative)
== END ==
PROVIDERS: PCP Family Medicine; Referring Provider Family Medicine; Visit Provider Family Medicine
DX: R10.31 Right lower quadrant pain (principal); R10.32 Left lower quadrant pain; R35.0 Frequency of micturition
CPT/HCPCS: 81001

== ENCOUNTER 2023-10-02 07:45 | Outpatient (CLI) | payer BC, SELFPAY ==
[2023-10-02] VITALS (9 sets, daily range): BP systolic 116–136; BP diastolic 58–73; PULSE 73–84; RESP 14–20; TEMP 36.5; O2SAT 98–100
--- NOTE | 2023-10-02 08:00 | DI.RAD.S_ITS ---
PROCEDURE: PAIN L INTERLAMINAR/CAUDAL INJ INDICATIONS: SPONDYLOSIS COMPARISON: [facility], CR, XR LUMBAR SPINE WITH FLEXION EXTENSION 5 VIEWS, 05/20/2023, 8:29. FINDINGS: 5 Fluoroscopic spot filming was performed to verify placement of spinal needles at the L4-L5 level(s), as labeled on the films. Appropriate location(s) of the needle tip(s) was confirmed by injection of iodinated contrast. IMPRESSION: Intraoperative guidance provided. Dictated by: Jese Hairston M.D. on 10/02/2023 at 10:50 Approved by: Jese Hairston M.D. on 10/02/2023 at 11:04
[2023-10-02] MEDS: MIDAZOLAM 2 MG/2 ML VIAL 1 MG IV ×2 (08:09→08:13)
[2023-10-02] MEDS: DEXAMETHASONE 10 MG/ML VIAL INJ (08:14)
[2023-10-02] MEDS: iopamidoL 15 ML VIAL 3 ML INJ (08:14)
--- NOTE | 2023-10-02 12:19 | P.PCN_ITS ---
Date/Time/Diagnoses Date of procedure: 10/02/23 Time of procedure: 08:00 Procedure Notes Physician: Jorge Cesar Total Fluoroscopy time (seconds): 13 Total sedation minutes: 10 Procedure in detail & Post-procedure care: L4-5 Interlaminar Epidural Steroid Injection Indications: Lolis is presenting for treatment of lumbar radiculopathy with low back and leg pain. Preoperative diagnosis: Lumbar radiculopathy Postoperative diagnosis: Same Focused Examination: Ax3 Mood and affect are normal Vital Signs: VSS ASA: 2 Consent: Following review of allergies and potential side effects/complications, including, but not necessarily limited to, infection, allergic reaction, local tissue breakdown, stroke, temporary or permanent nerve injury, paralysis, and possible , the patient indicated that they understood and agreed to proceed.? An informed consent document was signed by the patient, witnessed by a nurse and placed in the patient's chart.? Additionally, other treatment options including medications and physical therapy were reviewed with the patient. All questions were answered. Site was then marked. Anesthesia: After review of previous anesthetic history and IV conscious sedation, the patient was deemed safe to proceed with today's procedure with IV conscious sedation. IV sedation was accomplished with midazolam 2 mg administered by the RN after order by Dr. Cesar. Sedation was titrated to patient comfort during the course of the procedure. Patient remained responsive to all verbal commands. Position: Prone Monitoring: NIBP, Pulse oximetry, 3 lead EKG Needle used: 18 G 3.5? Tuohy Contrast: Isovue 300M Injectate: Dexamethasone 10 mg with 1% lidocaine 2 mL Technique: The skin was prepped with chloraprep and then draped in a sterile fashion. Time out was performed as per protocol. Oxygen applied via NC. Skin and subcutaneous structures of the needle entry site was then infiltrated with 3 mL of lidocaine 1%. Under AP, lateral and contralateral oblique fluoroscopic control, the Tuohy needle was guided into the L4-5 epidural space. The space was accessed with loss of resistance technique. Isovue 300M was then injected and the spread was consistent with the epidural space. There was no evidence for intravascular or intrathecal uptake. After negative aspiration, the above- mentioned injectate was then slowly administered and the needle withdrawn. The patient expressed no unusual discomfort or paresthesias during the injection. Band-Aids applied to injection sites. EBL: less than 1 ml Complications: None Post Procedure: Patient was taken to the recovery and monitored. The patient was provided a Pain Log to continue to record the patient's response to the target- specific procedure prior to the patient's follow-up visit with the referring physician. Patient was stable upon discharge. Detailed post procedure instructions were provided. Patient was asked to call in the event of worsening pain, fever, weakness, numbness or bladder or bowel incontinence.
== END 2023-10-02 08:44 | disposition home or self-care (01) ==
LOC: RAD 07:46
PROVIDERS: Family Provider Family Medicine; PCP Family Medicine; Referring Provider Anesthesiology; Visit Provider Anesthesiology
DX: M54.16 Radiculopathy, lumbar region (principal)
CPT/HCPCS: 62323; 99152; J1100; J2250

== ENCOUNTER 2023-10-15 22:05 | Emergency (ER) | payer BC, SELFPAY ==
[2023-10-15 22:33] VITALS: BP 169/89; PULSE 98; RESP 18; TEMP 36.6; O2SAT 98; BMI 30.4
[2023-10-15 22:53] LABS: Color Urine UA ORANGE
[2023-10-15 22:54] LABS: Appearance Urine UA CLOUDY; Bacteria Urine Few (2-10); RBC Urine 5-10/HPF (0-5/HPF); Squamous Epithelial Cell Urine 0-1 /HPF (0-5/HPF); WBC Urine 10-30/HPF (0-5/HPF)
[2023-10-15 22:55] LABS: Culture Indicated Urine Specimen Cultured
--- NOTE | 2023-10-15 23:49 | ED_ITS ---
HPI - Female Genitourinary General Chief complaint: Urogenital-Female Stated complaint: possible UTI, bleeding, vomiting Time Seen by Provider: 10/15/23 23:43 Source: patient Mode of arrival: Ambulatory History of Present Illness HPI Narrative: Patient comes to the ED with about 6 hours of intense dysuria urgency and frequency. No fever. Some vomiting. History of UTIs in the past. No other internal organ disease such as diabetes or hypertension. Related Data Home Medications Medication Instructions Recorded Confirmed phentermine 37.5 mg tablet 37.5 mg PO DAILY Weight Loss 09/16/23 10/07/23 Previous Rx's Medication Instructions Recorded gabapentin 300 mg capsule 300 mg PO TID PRN pain #90 caps 04/10/23 nitrofurantoin macrocrystal 100 mg 100 mg PO BID #10 caps 10/15/23 capsule Allergies Allergy/AdvReac Type Severity Reaction Status Date / Time No Known Drug Allergies Allergy Verified 10/15/23 22:39 Patient History Medical History (Updated 10/15/23 @ 23:53 by Logan Snowden MD) Sacroiliac joint dysfunction of both sides Illicit drug use Chronic prescription opiate use Chronic low back pain Myofascial pain Lumbar radiculopathy Hyperlipidemia Depression Ventral hernia Obesity History of alcohol abuse Opiate misuse (04/24/16) Uncomplicated opioid dependence (11/24/15) Surgical History Status post left knee surgery Status post knee surgery alcohol intake frequency: 0-2 drinks per day Substance Use Type: does not use Exam Narrative Exam Narrative: GENERAL: Alert, cooperative and in no distress. HEAD: Atraumatic. Normocephalic. EYES: Sclera are clear without icterus. Extraocular movements are full. ENT: No rhinorrhea. NECK: Supple. Full range of motion. CARDIOVASCULAR: Normal rate and rhythm without murmur gallop or rub. RESPIRATORY: Clear to auscultation. Breath sounds equal bilaterally. No wheezes, rales, or rhonchi. GASTROINTESTINAL: Abdomen soft, non-tender, nondistended. EXTREMITIES: No edema, full range of motion. No obvious trauma. BACK: Normal inspection, no CVA tenderness. NEURO: Nonfocal examination, normal speech SKIN: No rash or erythema of visible areas PSYCH: Normally oriented. Normal range of affect. Appropriate behavior Initial Vital Signs Initial Vital Signs: Vital Signs Temperature 97.9 F 10/15/23 22:33 Pulse Rate 98 H 10/15/23 22:33 Respiratory Rate 18 10/15/23 22:33 Blood Pressure 169/89 H 10/15/23 22:33 Pulse Oximetry 98 10/15/23 22:33 Oxygen Delivery Method Room Air 10/15/23 22:33 Course Orders Ordered: ED Orders 10/15/23 22:36 Urinalysis and Microscopic Stat Urine Culture Stat Sodium Chloride (Normal Saline 0.9%) 1,000 mls @ 1,000 mls/hr IV BOLUS ONE Stop: 10/16/23 00:48 Ondansetron HCl (Ondansetron 4 Mg/2 Ml Inj) 4 mg IV Q2HR PRN PRN Reason: Nausea And Vomiting Discontinued Medications Acetaminophen (Acetaminophen 325 Mg Tablet) 975 mg PO NOW ONE Stop: 10/15/23 23:50 Ceftriaxone Sodium 2,000 mg/ (Sodium Chloride) 100 mls @ 200 mls/hr IV NOW ONE Stop: 10/15/23 23:50 Ketorolac Tromethamine (Ketorolac 30 Mg/Ml Vial) 15 mg IV NOW ONE Stop: 10/15/23 23:50 Vital Signs Vital signs: Vital Signs - 8 hr 10/15/23 22:33 Temperature 97.9 F Pulse Rate 98 H Respiratory Rate 18 Blood Pressure 169/89 H Pulse Oximetry 98 Oxygen Delivery Method Room Air MDM - Female Genitourinary Lab Data Labs: Lab Results 10/15/23 Range/Units 22:36 Urine Color [place] Urine Appearance Cloudy Urine pH Not Reportable Ur Specific [place] Not Reportable Urine Protein Not Reportable Urine Glucose (UA) Not Reportable Urine Ketones Not Reportable Urine Occult Blood Not Reportable Urine Nitrate Not Reportable Urine Bilirubin Not Reportable Urine Urobilinogen Not Reportable Ur Leukocyte Esterase Not Reportable Urine RBC 5-10/hpf H (0-5/HPF) Urine WBC 10-30/hpf H (0-5/HPF) Ur Squamous Epith Cells 0-1 /hpf (0-5/HPF) Urine Bacteria Few (2-10) H (None) Ur Culture Indicated? Specimen cultured Discharge Plan Departure Patient Disposition: Home Clinical Impression: Acute cystitis Instructions: DI for Urinary Tract Infection (UTI) Activity Restrictions/Additional Instructions: You have a bladder infection. Take nitrofurantoin twice daily for the next 5 days. Use Pyridium as needed. Take Tylenol 1000 mg together with ibuprofen 600 mg every 6 hours. Make sure you stay well hydrated. Follow-up right away for high fever repeated vomiting. Otherwise follow-up in a few days if symptoms are not completely resolved. Prescriptions: New nitrofurantoin macrocrystal 100 mg capsule 100 mg PO BID Qty: 10 0RF Rx Instructions: must administer with a meal/food No Action gabapentin 300 mg capsule 300 mg PO TID PRN (Reason: pain) Qty: 90 0RF phentermine 37.5 mg tablet 37.5 mg PO DAILY Referrals: Filipe Candelaria MD [Primary Care Provider] - Stand Alone Forms: Patient Portal/API
[2023-10-16] MEDS: SODIUM CHLORIDE 0.9% 1,000 ML 1000 ML IV (00:13)
[2023-10-16] MEDS: ONDANSETRON 4 MG/2 ML INJ IV (00:15)
[2023-10-16] MEDS: ACETAMINOPHEN 325 MG TABLET 975 MG PO (00:15)
[2023-10-16] MEDS: KETOROLAC 30 MG/ML VIAL 15 MG IV (00:17)
[2023-10-16] MEDS: cefTRIAXone 2,000 MG in SODIUM CHLORIDE 0.9% 100 ML 200 MG IV (00:18)
[2023-10-16 00:23] VITALS: BP 131/78; PULSE 81; O2SAT 100
[2023-10-16 00:30] VITALS: BP 123/75; PULSE 82; O2SAT 100
[2023-10-16 01:00] VITALS: BP 119/76; PULSE 83; TEMP 36.7; O2SAT 100
== END 2023-10-16 01:35 | disposition home or self-care (01) ==
PROVIDERS: Emergency Provider Family Medicine Addiction Medicine; Family Provider Family Medicine; PCP Family Medicine
DX: N30.00 Acute cystitis without hematuria (principal)
CPT/HCPCS: 81001; 87077; 87086; 87147; 96365; 96375; 99284; J0696; J1885; J2405

== ENCOUNTER → 2023-11-07 14:17 | Outpatient (CLI) | payer BC, SELFPAY | LOC: PHYS 14:18 | PROVIDERS: Family Provider Family Medicine; PCP Family Medicine; Referring Provider Anesthesiology; Visit Provider Anesthesiology | DX: M54.16 Radiculopathy, lumbar region (principal) | CPT/HCPCS: 95886; 95909 ==

== ENCOUNTER 2023-11-13 07:35 | Outpatient (CLI) | payer BC, SELFPAY ==
[2023-11-13] VITALS (8 sets, daily range): BP systolic 108–131; BP diastolic 62–80; PULSE 77–89; RESP 17–21; TEMP 37.2; O2SAT 97–100
[2023-11-13] MEDS: MIDAZOLAM 2 MG/2 ML VIAL IV (08:00)
--- NOTE | 2023-11-13 08:00 | DI.RAD.S_ITS ---
PROCEDURE: PAIN SI JOINT INJECTION DEB INDICATIONS: JOINT DYSFUNCTION COMPARISON: None. FINDINGS: Fluoroscopic spot filming was performed to verify placement of spinal needles at the bilateral sacroiliac joints level(s), as labeled on the films. Appropriate location(s) of the needle tip(s) was confirmed by injection of iodinated contrast. IMPRESSION: Intra procedural examination demonstrating appropriate positions of the needles. Dictated by: Jose Wang M.D. on 11/13/2023 at 10:24 Approved by: Jose Wang M.D. on 11/13/2023 at 10:24
[2023-11-13] MEDS: BUPIVACAINE 0.5% (PF) 10 ML VIAL 5 ML INJ (08:05)
[2023-11-13] MEDS: DEXAMETHASONE 10 MG/ML VIAL 20 MG INJ (08:05)
[2023-11-13] MEDS: iopamidoL 15 ML VIAL 3 ML INJ (08:06)
--- NOTE | 2023-11-13 09:37 | P.PCN_ITS ---
Date/Time/Diagnoses Date of procedure: 11/13/23 Time of procedure: 08:00 Procedure Notes Physician: Jorge Cesar Total Fluoroscopy time (seconds): 22 Total sedation minutes: 16 Procedure in detail & Post-procedure care: Bilateral Sacroiliac Joint Injection Indications: Lolis is presenting for treatment of SI joint dysfunction with low back/buttock pain. Preoperative diagnosis: Bilateral SI joint dysfunction Postoperative diagnosis: Same Focused Examination: Ax3 Mood and affect are normal Vital Signs: VSS ASA: 2 Consent: Following review of allergies and potential side effects/complications, including, but not necessarily limited to, infection, allergic reaction, local tissue breakdown, stroke, temporary or permanent nerve injury, paralysis, and possible , the patient indicated that they understood and agreed to proceed.? An informed consent document was signed by the patient, witnessed by a nurse and placed in the patient's chart.? Additionally, other treatment options including medications and physical therapy were reviewed with the patient. All questions were answered. Site was then marked. Anesthesia: After review of previous anesthetic history and IV conscious sedation, the patient was deemed safe to proceed with today's procedure with IV conscious sedation. IV sedation was accomplished with midazolam 2 mg administered by the RN after order by Dr. Cesar. Sedation was titrated to patient comfort during the course of the procedure. Patient remained responsive to all verbal commands. Position: Prone Monitoring: NIBP, Pulse oximetry, 3 lead EKG Needle used: 22 ga, 3.5 inch spinal Contrast: 2 mL Isovue M-300 Injectate: Dexamethasone 7.5 mg with 1% lidocaine 2 mL per site Technique: The skin was prepped with chloraprep and then draped in a sterile fashion. Time out was performed as per protocol. Oxygen applied via NC. Skin and subcutaneous structures of the needle entry site was then infiltrated with 5 mL of lidocaine 1%. Under AP and lateral fluoroscopic control, the spinal needle was guided into the right sacroiliac joint. 1 mL contrast was injected and was consistent with intra-articular placement. There was no evidence for intravascular uptake. After negative aspiration, the above-mentioned injectate was then slowly administered and the needle withdrawn. The patient expressed no unusual discomfort or paresthesias during the injection. Skin and subcutaneous structures of the needle entry site was then infiltrated with 5 mL of lidocaine 1%. Under AP and lateral fluoroscopic control, the spinal needle was guided into the left sacroiliac joint. 1 mL contrast was injected and was consistent with intra-articular placement. There was no evidence for intravascular uptake. After negative aspiration, the above-mentioned injectate was then slowly administered and the needle withdrawn. The patient expressed no unusual discomfort or paresthesias during the injection.Band-Aids applied to injection sites. EBL: less than 1 ml Complications: None Post Procedure: Patient was taken to the recovery and monitored. The patient was provided a Pain Log to continue to record the patient's response to the target- specific procedure prior to the patient's follow-up visit with the referring physician. Patient was stable upon discharge. Detailed post procedure instructions were provided. Patient was asked to call in the event of worsening pain, fever, weakness, numbness or bladder or bowel incontinence.
== END 2023-11-13 08:39 | disposition home or self-care (01) ==
PROVIDERS: Family Provider Family Medicine; PCP Family Medicine; Referring Provider Anesthesiology; Visit Provider Anesthesiology
DX: M53.3 Sacrococcygeal disorders, not elsewhere classified (principal)
CPT/HCPCS: 27096; 99152; J1100; J2250

== ENCOUNTER 2024-01-22 08:40 | Outpatient (CLI) | payer BC, SELFPAY ==
[2024-01-22] VITALS (8 sets, daily range): BP systolic 110–132; BP diastolic 57–79; PULSE 64–79; RESP 12–18; TEMP 36.6; O2SAT 99–100
--- NOTE | 2024-01-22 09:00 | DI.RAD.S_ITS ---
PROCEDURE: PAIN L INTERLAMINAR/CAUDAL INJ INDICATIONS: radiculopathy COMPARISON: [facility], XA, PAIN L INTERLAMINAR/CAUDAL INJ, 10/02/2023, 9:12. FINDINGS: Fluoroscopic spot filming was performed to verify placement of spinal needles at the L3-4 level(s), as labeled on the films. Appropriate location(s) of the needle tip(s) was confirmed by injection of iodinated contrast. IMPRESSION: L3-4 needle and contrast localization. Dictated by: Digna Marin M.D. on 01/22/2024 at 13:42 Approved by: Digna Marin M.D. on 01/22/2024 at 13:42
[2024-01-22] MEDS: iopamidoL 15 ML VIAL 3 ML INJ (09:08)
[2024-01-22] MEDS: DEXAMETHASONE 10 MG/ML VIAL INJ (09:08)
--- NOTE | 2024-01-22 11:46 | P.PCN_ITS ---
Date/Time/Diagnoses Date of procedure: 01/22/24 Time of procedure: 09:00 Procedure Notes Physician: Jorge Cesar Total Fluoroscopy time (seconds): 11 Total sedation minutes: 10 Procedure in detail & Post-procedure care: L3-4 Interlaminar Epidural Steroid Injection Indications: Lolis is presenting for treatment of lumbar radiculopathy with low back and leg pain. Preoperative diagnosis: Lumbar radiculopathy Postoperative diagnosis: Same Focused Examination: Ax3 Mood and affect are normal Vital Signs: VSS ASA: 2 Consent: Following review of allergies and potential side effects/complications, including, but not necessarily limited to, infection, allergic reaction, local tissue breakdown, stroke, temporary or permanent nerve injury, paralysis, and possible , the patient indicated that they understood and agreed to proceed.? An informed consent document was signed by the patient, witnessed by a nurse and placed in the patient's chart.? Additionally, other treatment options including medications and physical therapy were reviewed with the patient. All questions were answered. Site was then marked. Anesthesia: After review of previous anesthetic history and IV conscious sedation, the patient was deemed safe to proceed with today's procedure with IV conscious sedation. IV sedation was accomplished with midazolam 2 mg administered by the RN after order by Dr. Cesar. Sedation was titrated to patient comfort during the course of the procedure. Patient remained responsive to all verbal commands. Position: Prone Monitoring: NIBP, Pulse oximetry, 3 lead EKG Needle used: 18 G 3.5? Tuohy Contrast: Isovue 300M Injectate: Dexamethasone 10 mg with 1% lidocaine 2 mL Technique: The skin was prepped with chloraprep and then draped in a sterile fashion. Time out was performed as per protocol. Oxygen applied via NC. Skin and subcutaneous structures of the needle entry site was then infiltrated with 3 mL of lidocaine 1%. Under AP, lateral and contralateral oblique fluoroscopic control, the Tuohy needle was guided into the L3-4 epidural space. The space was accessed with loss of resistance technique. Isovue 300M was then injected and the spread was consistent with the epidural space. There was no evidence for intravascular or intrathecal uptake. After negative aspiration, the above- mentioned injectate was then slowly administered and the needle withdrawn. The patient expressed no unusual discomfort or paresthesias during the injection. Band-Aids applied to injection sites. EBL: less than 1 ml Complications: None Post Procedure: Patient was taken to the recovery and monitored. The patient was provided a Pain Log to continue to record the patient's response to the target- specific procedure prior to the patient's follow-up visit with the referring physician. Patient was stable upon discharge. Detailed post procedure instructions were provided. Patient was asked to call in the event of worsening pain, fever, weakness, numbness or bladder or bowel incontinence.
--- NOTE | 2024-01-23 12:45 | PC.NURSE ---
left voice message to see how she is doing after her procedure yesterday and if she has any questions or concerns to please contact the clinic.
--- NOTE | 2024-01-23 13:59 | PC.NURSE ---
Late note: 01/22/24 Patient received 2mg of Versed at 0902 per provider verbal order.
== END 2024-01-22 09:36 | disposition home or self-care (01) ==
PROVIDERS: Family Provider Family Medicine; PCP Family Medicine; Referring Provider Anesthesiology; Visit Provider Anesthesiology
DX: M54.16 Radiculopathy, lumbar region (principal)
CPT/HCPCS: 62323; 99152; J1100

== ENCOUNTER → 2024-01-29 10:29 | Outpatient (CLI) | payer BC, SELFPAY ==
[2024-01-29 11:37] LABS: Add Manual Diff / Slide Review NO; Basophils Absolute Auto 100 /uL (0-100); Eosinophils Absolute Auto 500 /uL (0-450); Eosinophils Percent Auto 5.8 % (2-4); Hematocrit 41.6 % (36-46); Hemoglobin 13.7 g/dL (12.0-16.0); Lymphocytes Absolute Auto 2100 /uL (1100-4500); Lymphocytes Percent Auto 26.8 % (25-40); Mean Corpuscular Hemoglobin 28.6 PG (26-34); Mean Corpuscular Volume 86.9 fL (80-100); Monocytes Absolute Auto 500 /uL (0-900); Monocytes Percent Auto 6.1 % (3-14); Neutrophils Absolute Auto 4800 /uL (1500-7000); Neutrophils Percent Auto 60.3 % (50-75); Platelet Count 271 X10^3/uL (150-400); Red Blood Cell Count 4.79 X10^6/uL (4.0-5.2); Red Cell Distribution Width 13.4 % (11.6-14.8); White Blood Cell Count 7.9 X10^3/uL (4.5-11.0)
[2024-01-29 11:56] LABS: Alanine Aminotransferase 15 IU/L (<35); Albumin 4.8 g/dL (3.5-5.0); Albumin Globulin Ratio 1.5 (1.0-2.8); Alkaline Phosphatase 58 U/L (38-126); Aspartate Aminotransferase 19 IU/L (14-36); Bilirubin Total 0.6 mg/dL (0.2-1.3); Blood Urea Nitrogen 16 mg/dL (7-17); Calcium 9.6 mg/dL (8.4-10.2); Carbon Dioxide 31 mmol/L (22-32); Chloride 106 mmol/L (98-107); Cholesterol 223 mg/dL (140-199); Estimated Glomerular Filt Rate > 60 mL/min (>60); Globulin 3.2 g/dL (1.7-4.1); Glucose 85 mg/dL (70-100); HDL Cholesterol 59 mg/dL (40-60); HEMOLYSIS < 15 (0-50); LDL Cholesterol Calculated 151 mg/dL (<100); Potassium 3.7 mmol/L (3.4-5.1); Sodium 142 mmol/L (137-145); Triglycerides 67 mg/dL (35-150)
[2024-01-29 12:13] LABS: Free T4, Direct Thyroxine 1.12 ng/dL (0.78-2.19)
[2024-01-29 12:27] LABS: Thyroid Stimulating Hormone 0.354 uIU/mL (0.47-4.68)
[2024-01-29 12:29] LABS: Ferritin 24 ng/mL (6-137)
[2024-01-29 12:36] LABS: Follicle Stimulating Hormone 9.62 mIU/mL
[2024-01-29 16:52] LABS: Vitamin D 25 Hydroxy (D3) 44.1 ng/mL (30.0-100.0)
[2024-01-30 04:47] LABS: Apolipoprotein B 101 mg/dL (<90)
== END ==
PROVIDERS: Family Provider Family Medicine; PCP Family Medicine; Referring Provider Obstetrics & Gynecology; Visit Provider Obstetrics & Gynecology
DX: E66.8 Other obesity (principal); E78.5 Hyperlipidemia, unspecified
CPT/HCPCS: 0024U; 36415; 80053; 80061; 82172; 82306; 82728; 83001; 83525; 84439; 84443; 85025

== ENCOUNTER → 2024-02-05 07:02 | Outpatient (CLI) | payer BC, SELFPAY ==
--- NOTE | 2024-02-05 07:02 | DI.US.S_ITS ---
PROCEDURE: US ABD AORTA ANEURYSM SCREEN INDICATIONS: POSSIBLE EHLER'S DANLOS SYNDROME - EVALUATE AORTA. TECHNIQUE: Real time scanning was performed of the aorta and iliac arteries, with image documentation. COMPARISON: None. FINDINGS: Aorta: Proximal aortic diameter measures 2.1 cm. Mid-aorta measures 1.7 cm. Distal aortic diameter is 1.8 cm. Iliac arteries: Right common iliac artery measures 0.8 cm. Left common iliac artery measures 1.2 cm. IMPRESSION: No evidence of aortic aneurysm. Dictated by: Jose Wang M.D. on 02/05/2024 at 8:22 Approved by: Jose Wang M.D. on 02/05/2024 at 8:22
== END ==
LOC: US 07:02
PROVIDERS: Family Provider Family Medicine; PCP Family Medicine; Referring Provider Obstetrics & Gynecology; Visit Provider Obstetrics & Gynecology
DX: Z13.6 Encounter for screening for cardiovascular disorders (principal)
CPT/HCPCS: 76706

== ENCOUNTER → 2024-02-18 16:04 | Outpatient (CLI) | payer BC, SELFPAY ==
--- NOTE | 2024-02-18 16:06 | DI.RAD.S_ITS ---
PROCEDURE: XR CERVICAL SPINE 4V OR 5V INDICATIONS: Neck pain TECHNIQUE: 5 views of the cervical spine acquired. COMPARISON: None. FINDINGS: Bones: Straightened of the cervical spine. Mild retrolisthesis of C2 on C3. Mild anterolisthesis of C4 on C5. Vertebral body height of cervical spine is well maintained. Multilevel, degenerative disc disease of cervical spine, most pronounced and severe in the lower cervical spine. No significant cervical facet arthropathy. Left osseous neuroforaminal stenosis: Mild at C5-6 and C6-7. Right osseous neural from stenosis: Moderate at C5-6. Limited evaluation at C6-7 given projection. Lateral masses C1-2 are well aligned. Soft tissues: No prevertebral soft tissue swelling. IMPRESSION: Degenerative changes as described above. Dictated by: Estefanía Chaudhari M.D. on 02/18/2024 at 17:18 Approved by: Estefanía Chaudhari M.D. on 02/18/2024 at 17:21
--- NOTE | 2024-02-18 16:06 | DI.RAD.S_ITS ---
PROCEDURE: XR LUMBAR SPINE MIN 4V INDICATIONS: Low back pain s/p fall TECHNIQUE: 5 views of the lumbar spine were acquired, including bilateral oblique views. COMPARISON: [facility], , XR LUMBAR SPINE 2-3V, 07/06/2022, 11:41. FINDINGS: Bones: Mild levoscoliosis, centered at the thoracolumbar junction. Grade 1 anterolisthesis of L4 on L5. Vertebral body heights of the lumbar spine is well maintained. Multilevel degenerative changes of the lumbar spine, most pronounced and severe at the upper lumbar spine. Moderate lumbar facet arthropathy. Soft tissues: An IUD projects over the pelvis. IMPRESSION: Degenerative changes as described above. Overall, no significant change from prior exam. Dictated by: Estefanía Chaudhari M.D. on 02/18/2024 at 17:21 Approved by: Estefanía Chaudhari M.D. on 02/18/2024 at 17:23
--- NOTE | 2024-02-18 16:06 | DI.RAD.S_ITS ---
PROCEDURE: XR THORACIC SPINE 3V INDICATIONS: Back pain s/p fall TECHNIQUE: 3 views of the thoracic spine were acquired. COMPARISON: None. FINDINGS: Bones: Mild dextroscoliosis of the thoracic spine. Straightening of the thoracic spine. Vertebral body height of thoracic spine is well maintained. Multilevel, mild degenerative disease of thoracic spine. IMPRESSION: Degenerative changes as described above. Dictated by: Estefanía Chaudhari M.D. on 02/18/2024 at 17:23 Approved by: Estefanía Chaudhari M.D. on 02/18/2024 at 17:25
== END ==
PROVIDERS: Family Provider Family Medicine; PCP Family Medicine; Referring Provider Anesthesiology; Visit Provider Anesthesiology
DX: M48.02 Spinal stenosis, cervical region (principal); M43.12 Spondylolisthesis, cervical region; M50.30 Other cervical disc degeneration, unspecified cervical region; M47.816 Spondylosis without myelopathy or radiculopathy, lumbar region; M43.16 Spondylolisthesis, lumbar region; M41.9 Scoliosis, unspecified; M54.6 Pain in thoracic spine; M99.9 Biomechanical lesion, unspecified
CPT/HCPCS: 72050; 72072; 72110

== ENCOUNTER 2024-03-11 07:57 | Outpatient (CLI) | payer BC, SELFPAY ==
[2024-03-11] VITALS (8 sets, daily range): BP systolic 111–137; BP diastolic 67–79; PULSE 71–83; RESP 10–19; TEMP 36.6; O2SAT 96–100
--- NOTE | 2024-03-11 08:30 | DI.RAD.S_ITS ---
PROCEDURE: PAIN L/S TRANSFORAMINAL INJECT INDICATIONS: LUMBAR RADICULOPATHY COMPARISON: None. FINDINGS: Fluoroscopic spot filming was performed to verify placement of spinal needles at the left L5-S1 level(s), as labeled on the films. Appropriate location(s) of the needle tip(s) was confirmed by injection of iodinated contrast. IMPRESSION: Left L5-S1 fluoroscopically guided nerve root block. Dictated by: Desire Perrin M.D. on 03/11/2024 at 15:36 Approved by: Desire Perrin M.D. on 03/11/2024 at 15:38
[2024-03-11] MEDS: MIDAZOLAM 2 MG/2 ML VIAL IV (09:01)
[2024-03-11] MEDS: DEXAMETHASONE 10 MG/ML VIAL INJ (09:03)
[2024-03-11] MEDS: iopamidoL 15 ML VIAL 3 ML INJ (09:03)
--- NOTE | 2024-03-11 12:23 | P.PCN_ITS ---
Date/Time/Diagnoses Date of procedure: 03/11/24 Time of procedure: 08:30 Procedure Notes Physician: Jorge Cesar Total Fluoroscopy time (seconds): 31 Total sedation minutes: 12 Procedure in detail & Post-procedure care: Left L5-S1 Transforaminal Epidural Steroid Injection Indications: Lolis is presenting for treatment of lumbar radiculopathy with low back and leg pain. Preoperative diagnosis: Lumbar radiculopathy Postoperative diagnosis: Same Focused Examination: Ax3 Mood and affect are normal Vital Signs: VSS ASA: 2 Consent: Following review of allergies and potential side effects/complications, including, but not necessarily limited to, infection, allergic reaction, local tissue breakdown, stroke, temporary or permanent nerve injury, paralysis, and possible , the patient indicated that they understood and agreed to proceed.? An informed consent document was signed by the patient, witnessed by a nurse and placed in the patient's chart.? Additionally, other treatment options including medications and physical therapy were reviewed with the patient. All questions were answered. Site was then marked. Anesthesia: After review of previous anesthetic history and IV conscious sedati on, the patient was deemed safe to proceed with today's procedure with IV conscious sedation. IV sedation was accomplished with midazolam 2 mg administered by the RN after order by Dr. Cesar. Sedation was titrated to patient comfort during the course of the procedure. Patient remained responsive to all verbal commands. Position: Prone Monitoring: NIBP, Pulse oximetry, 3 lead EKG Needle used: 22 gauge, 5 inch spinal needle Contrast: Isovue 300M Injectate: 10 mg Dexamethasone mixed with 1% lidocaine 1 ml and normal saline 1 mL Technique: The skin was prepped with chloraprep and draped in a sterile fashion. Time out was performed as per protocol. Oxygen applied via NC. Skin and subcutaneous structures of the needle entry site were infiltrated with 3mL of lidocaine 1%. Under fluoroscopic guidance, using an ipsilateral oblique view,?a 22 gauge 5 inch needle was advanced to the base of the left L5?pedicle.? The needle was advanced to the superio-posterior aspect of the neural foramen under lateral view.? Oblique and AP views were rechecked. No paresthesias noted by the patient during needle placement. In AP view and utilizing real-time digital subtraction fluoroscopy, 2 ml contrast was slowly injected. Epidural spread was observed without evidence for intravascular nor intrathecal uptake. Contrast spread was seen craniocaudally. The above injectate was then administered without paresthesias and the needle was subsequently withdrawn. Band-Aids applied to injection sites. EBL: less than 1 ml Complications: None Post Procedure: Patient was taken to the recovery and monitored. The patient was provided a Pain Log to continue to record the patient's response to the target- specific procedure prior to the patient's follow-up visit with the referring physician. Patient was stable upon discharge. Detailed post procedure instructions were provided. Patient was asked to call in the event of worsening pain, fever, weakness, numbness or bladder or bowel incontinence.
== END 2024-03-11 09:34 | disposition home or self-care (01) ==
PROVIDERS: Family Provider Family Medicine; PCP Family Medicine; Referring Provider Anesthesiology; Visit Provider Anesthesiology
DX: M54.16 Radiculopathy, lumbar region (principal)
CPT/HCPCS: 64483; 99152; J1100; J2250

== ENCOUNTER → 2024-05-27 15:34 | Outpatient (CLI) | payer BC, SELFPAY ==
--- NOTE | 2024-05-27 15:35 | DI.MG.S_ITS ---
BILATERAL DIGITAL SCREENING MAMMOGRAM 3D/2D WITH CAD: 05/27/2024 CLINICAL: Routine screening. Comparison is made to exams dated: 11/06/2021 mammogram, 11/04/2020 mammogram, and 09/02/2019 mammogram - [facility]. Both breasts are extremely dense, which lowers the sensitivity of mammography (category d />75% glandular tissue). Current study was also evaluated with a Computer Aided Detection (CAD) system. No significant masses, calcifications, or other findings are seen in either breast. There has been no significant interval change. IMPRESSION: NEGATIVE There is no mammographic evidence of malignancy. A 1 year screening mammogram is recommended. Based on the Tyrer Cuzick model (a risk assessment model) the patient's lifetime risk is 11.7% and her 10 year risk is 2.4%. According to the ACR, ACS, and NCCN guidelines, an annual breast MRI exam along with mammogram is recommended if the patient's lifetime risk is 20% or greater. This exam was interpreted at Station ID: [id number]. NOTE: For mammograms, a report in lay terms will be sent to the patient. Approximately 15% of breast malignancies will not be visualized mammographically. In the management of a palpable breast mass, a negative mammogram must not discourage biopsy of a clinically suspicious lesion. Electronically Signed By: Kacey jamil/spring:05/28/2024 16:32:38 copy to: [employer] [facility] letter sent: Normal Exam ACR BI-RADS Category 1: Negative [id number]
== END ==
PROVIDERS: Family Provider Family Medicine; PCP Family Medicine; Referring Provider Family Medicine; Visit Provider Family Medicine
DX: Z12.31 Encounter for screening mammogram for malignant neoplasm of breast (principal); R92.343 Mammographic extreme density, bilateral breasts
CPT/HCPCS: 77063; 77067